=== PATIENT | female | born 1995 | race Caucasian/White ===

== ENCOUNTER 2020-12-28 00:07 | Inpatient (IN) | payer BC, OTHER ==
[~2020-12-28] VITALS: Ht 165.1 cm; Wt 121.1 kg
[2020-12-28] MEDS ORDERED: PRENATAL VITAM1 EACH PO (01:39)
--- NOTE | 2020-12-28 12:24 | PR ---
[facility] [address] [facility] [place], [place] [address] Signed Progress Notes IP Datetime Report Generated by CPN: 12/28/2020 12:24 PROGRESS NOTES: [id number] Impression: Reactive Non Stress Test Plan: Continue Present Management; Induction VITAL SIGNS: [id number] Vital Signs: Reviewed; Within Normal Limits EXAM: [id number] Dilatation: 0.0 Effacement: 70 Station: -3 Contractions: irregular MEMBRANES: [id number] Membranes Status: Intact Comments: EIOL, s/p cytotec x 4 More uncomfortable, feeling contractions Continue cytotec until cervix at least 1cm to accomodate cook catheter vs AROM FETUS A: [id number] FHR Baseline: 120 Variability: Moderate 6-25bpm Accelerations: 15X15 Decelerations: None FHR Category: Category I Presentation: Vertex Comments on Fetus A: No evidence of acidemia FETUS B: [id number] Signing Physician: Desmond Arce DO Copies: ~ *Electronically Signed* 12/28/20 1224 DESMOND ARCE DO PATIENT NAME: KAYLEEN ALCOCER RECORD #: [id number] PROGRESS NOTE DATE OF : 97 PHYSICIAN: DESMOND ARCE DO RPT #: [id number] REPORT IS CONFIDENTIAL AND NOT TO BE RELEASED WITHOUT AUTHORIZATION
--- NOTE | 2020-12-28 20:11 | PR ---
[facility] [address] [facility] [place], [place] [address] Signed Progress Notes IP Datetime Report Generated by CPN: 12/28/2020 20:11 PROGRESS NOTES: [id number] Impression: Reassuring Heart Rate; Rupture of Membranes Procedures: Artificial ROM Plan: Continue Present Management VITAL SIGNS: [id number] Vital Signs: Reviewed; Within Normal Limits EXAM: [id number] Dilatation: 1.0 Effacement: 70 Station: -3 Contractions: irregular MEMBRANES: [id number] Membranes Status: Ruptured Comments: Feeling more uncomfortable with contractions AROM performed without difficulty FETUS A: [id number] FHR Baseline: 120 Variability: Moderate 6-25bpm Accelerations: 15X15 Decelerations: None FHR Category: Category I Presentation: Vertex Comments on Fetus A: No evidence of acidemia FETUS B: [id number] Signing Physician: Desmond Arce DO Copies: ~ *Electronically Signed* 12/28/202010 DESMOND ARCE DO PATIENT NAME: KAYLEEN ALCOCER PROGRESS NOTE DATE OF : 97 PHYSICIAN: DESMOND ARCE DO RPT #: [id number] REPORT IS CONFIDENTIAL AND NOT TO BE RELEASED WITHOUT AUTHORIZATION
--- NOTE | 2020-12-29 00:36 | PR ---
[facility] [address] [facility] [place] [address] Signed Progress Notes IP Datetime Report Generated by CPN: 12/29/2020 00:36 PROGRESS NOTES: [id number] Impression: Reassuring Heart Rate Procedures: Intrauterine Pressure Catheter Plan: Continue Present Management VITAL SIGNS: [id number] Vital Signs: Reviewed; Within Normal Limits EXAM: [id number] Dilatation: 1.5 Effacement: 80 Station: -2 Contractions: irregular MEMBRANES: [id number] Membranes Status: Ruptured Comments: Comfortable with epidural s/p cytotec x 6, AROM Start low dose pitocin, IUPC placed without difficulty FETUS A: [id number] FHR Baseline: 120 Variability: Moderate 6-25bpm Accelerations: 15X15 Decelerations: None FHR Category: Category I Presentation: Vertex Comments on Fetus A: No evidence of acidemia FETUS B: [id number] Signing Physician: Desmond Arce DO Copies: ~ *Electronically Signed* 12/29/20 0036 DESMOND ARCE DO PATIENT NAME: LEODAN,KAYLEEN R PROGRESS NOTE DATE OF : 97 PHYSICIAN: DESMOND ARCE DO RPT #: [id number] REPORT IS CONFIDENTIAL AND NOT TO BE RELEASED WITHOUT AUTHORIZATION
--- NOTE | 2020-12-30 10:05 | PR ---
[facility] [address] [facility] [place] [address] Signed PP Progress Notes Datetime Report Generated by CPN: 12/30/2020 10:05 SUBJECTIVE: [id number] Pain: Within Normal Limits Nausea/Vomiting: Denies Flatus: Yes Bowel Movement: No Vital Signs: [id number] Vital Signs: Reviewed EXAM: Ongoing Cardiovascular: Normal Respiratory: Normal Abdomen/Uterus: Normal Lochia: Normal Vulva/Perineum: Normal Breasts: Normal CVA Tenderness: Normal Extremities: Normal Progress: Normal Exam Comments: No apparent distress well Fundus firm below umbilicus Extremities with trace bilateral edema IMPRESSION/PLAN/PROCEDURES: [id number] Impression: Normal Progression Plan: Continue Present Management; Discharge Progress Notes: PPD#1 s/p , 2nd degree perineal laceration Progressing well , hgb 10, lochia moderate well Desires IUD for contraception, discussed Mirena vs Paragard, pt will research further Reviewed discharge instructions including bleeding and depression precautions Signing Physician: Desmond Arce DO Copies: ~ *Electronically Signed* 12/30/20 1005 DESMOND ARCE DO PATIENT NAME: KAYLEEN ALCOCER PROGRESS NOTE DATE OF : 97 PHYSICIAN: DESMOND ARCE DO RPT #: [id number] REPORT IS CONFIDENTIAL AND NOT TO BE RELEASED WITHOUT AUTHORIZATION
== END 2020-12-30 12:15 | disposition home or self-care (01) | DRG 807 ==
LOC: FBC 00:07
PROVIDERS: ADMIT Obstetrics & Gynecology; ATTEND Obstetrics & Gynecology
PROC: 10907ZC Drainage of Amniotic Fluid, Therapeutic from Products of Conception, Via Natural or Artificial Opening (ICD-10-PCS; 2020-12-28)
PROC: 3E0P7VZ Introduction of Hormone into Female Reproductive, Via Natural or Artificial Opening (ICD-10-PCS; 2020-12-28)
PROC: 00HU33Z Insertion of Infusion Device into Spinal Canal, Percutaneous Approach (ICD-10-PCS; 2020-12-28)
PROC: 3E0R3BZ Introduction of Anesthetic Agent into Spinal Canal, Percutaneous Approach (ICD-10-PCS; 2020-12-28)
PROC: 10E0XZZ Delivery of Products of Conception, External Approach (ICD-10-PCS; principal; 2020-12-29)
PROC: 0KQM0ZZ Repair Perineum Muscle, Open Approach (ICD-10-PCS; 2020-12-29)
PROC: 10H07YZ Insertion of Other Device into Products of Conception, Via Natural or Artificial Opening (ICD-10-PCS; 2020-12-29)
DX: O99.824 Streptococcus B carrier state complicating childbirth (principal); Z37.0 Single live birth; O70.1 Second degree perineal laceration during delivery; Z3A.40 40 weeks gestation of pregnancy; O77.0 Labor and delivery complicated by meconium in amniotic fluid; O99.334 Smoking (tobacco) complicating childbirth; F17.210 Nicotine dependence, cigarettes, uncomplicated; O99.344 Other mental disorders complicating childbirth; F41.9 Anxiety disorder, unspecified; F32.9 Major depressive disorder, single episode, unspecified; Z88.0 Allergy status to penicillin; Z91.040 Latex allergy status; Z86.19 Personal history of other infectious and parasitic diseases
CPT/HCPCS: 01960; 36415; 85027; J0690; J2590; J2795; J7121